=== PATIENT | female | born 1995 | race Caucasian/White ===

== ENCOUNTER → 2017-08-07 | Outpatient (CLI) | payer SELFPAY | END | disposition home or self-care (01) | LOC: ORTHO 01:43 | DX: M75.91 Shoulder lesion, unspecified, right shoulder (principal) ==

== ENCOUNTER → 2021-05-14 | Outpatient (CLI) | payer SELFPAY ==
[2021-05-14 14:18] LABS: FREE T4 0.9 ng/dl (0.76-1.46); THYROID STIM HORMONE (HS) 2.44 uIU/ml (0.358-4.75)
== END | disposition home or self-care (01) ==
LOC: LAB 12:41
PROVIDERS: ATTEND Family Medicine
DX: E03.9 Hypothyroidism, unspecified (principal)